=== PATIENT | female | born 1960 | race Caucasian/White ===

== ENCOUNTER 2016-08-03 19:27 | Emergency (ER) | payer OTHER ==
[2016-08-03 20:24] LABS: ALT (SGPT) 11 U/L (0-55); AST (SGOT) 12 U/L (5-34); Alkaline Phosphatase 99 U/L (40-150); Anion Gap 17 mmol/L (10-20); BUN (Urea Nitrogen) 8 mg/dL (9.8-20.1); Bilirubin, Total 0.2 mg/dL (0.2-1.2); Calc. Creatinine Clearance 0 mL/min (70-130); Calcium 9.2 mg/dL (7.8-10.44); Carbon Dioxide 25 mmol/L (22-29); Chloride 103 mmol/L (98-107); Estimated GFR-MDRD 84; Globulin 3.7 g/dL (2.4-3.5); Lipase 37 U/L (8-78); Protein, Total 7.5 g/dL (6.0-8.3); Troponin I Less than 0.010 ng/mL (< 0.028)
[2016-08-03 20:58] LABS: Hematocrit 41.1 % (36.0-47.0); Red Blood Cell (RBC) Count 4.82 mill/uL (4.20-5.40); White Blood Cell (WBC) Count 14.1 thou/uL (4.8-10.8)
[2016-08-03 20:59] LABS: #Basophils 0.2 thou/uL (0.0-0.2); #Eosinphils 0.3 thou/uL (0.0-0.7); #Lymphocytes 5.2 thou/uL (1.20-3.40); #Monocytes 0.4 thou/uL (0.11-0.59); %Basophils 1.1 % (0.0-1.0); %Eosinophils 2.2 % (0.0-10.0); %Monocytes 3.1 % (0.0-10.0); Mean Platelet Volume 5.8 fL (7.4-10.4)
--- NOTE | 2016-08-03 21:06 | PICIS ---
[facility] EMERGENCY RECORD TRIAGE (19:31 WJAN) TRIAGE NOTES: Chest pain, left arm pain for 3 days. Recent surgery on left breast, duct removal. (19:31 WJAN) PATIENT: NAME: Alie Monge, AGE: 56, GENDER: female, : Sat 1960, TIME OF GREET: Sun Aug 03, 2016 19:28, PREFERRED LANGUAGE: Maori, ETHNICITY: Not or , ECODE BILLING MAP: [facility], SSN: [id number], Zip Code: [address], KG WEIGHT: 62.6 (est.), PHONE: , , , PERSON ID: [id number], PAYMENT: [facility] Medicaid. (19:31 WJAN) ADMISSION: URGENCY: 2 Emergent, ADMISSION SOURCE: Home, TRANSPORT: Walk-in, BED: TRIAGE. (19:31 WJAN) ASSESSMENT: Additional Triage notes: Pt reports pain of left and occasionally left chest for 3 days. Pt A&Ox4, NAD, breathing non-labored. (19:41 WJAN) IMMUNIZATIONS: Flu vaccine not up to date, Tetanus immunization up to date, Pneumococcal vaccine not up to date. (19:41 WJAN) SIRS SCORING: Heart Rate 55-109 (0), Temp range 96.8-101.1 (0), respiratory rate 12-24 (0), Mental Status altered: no (0). (19:41 WJAN) TRIAGE SCREENING: Patient denies suicidal ideation, Patient denies presence of domestic violence. (19:41 WJAN) LMP: LMP: Hysterectomy. (19:41 WJAN) PROVIDERS: TRIAGE NURSE: Margaret Dumont RN. (19:31 WJAN) PREVIOUS VISIT ALLERGIES: aspirin (bulk). (19:31 WJAN) aspirin (bulk). (19:41 WJAN) KNOWN ALLERGIES adhesive (Unconfirmed) aspirin (Unconfirmed) aspirin (bulk) (Unconfirmed) saccharin (Unconfirmed) CURRENT MEDICATIONS NovoLOG: VIAL (ML) : Strength - 100 unit/mL : SUBCUTANEOUS Patient Dose: Subcutaneous 2 times a day (before meals). (19:41 WJAN) Lantus: CARTRIDGE (ML) : Strength - 100 unit/mL : SUBCUTANEOUS Patient Dose: Subcutaneous 3 times a day (with meals). (19:43 WJAN) HYDROcodone-acetaminophen: TABLET : Strength - 10 mg-325 mg : ORAL Patient Dose: 1 tab(s) Oral every 8 hours PRN. (19:46 WJAN) Januvia: TABLET : Strength - 25 mg : ORAL Patient Dose: 1 tab(s) Oral once a day. (19:47 WJAN) &a-1R&a+25V*p+0X*b4264F*c202B*c15G*c2P*p-0X&a-25V&a+1R Name: Alie Monge : 1960 F56 MedRec: [id number] AcctNum: [id number] Prepared: Mine Aug 03, 2016 21:12 by Interface Page 1 of 8 pMD [facility] EMERGENCY RECORD VITAL SIGNS VITAL SIGNS: BP: 141/76, Pulse: 86, Resp: 20 (Non-Labored), Temp: 99.6 (Oral), Pain: 8, O2 sat: 96 on Room Air, Time: 08/03/2016 19:31. (19:31 WJAN) BP: 125/68, Pulse: 86, Resp: 20 (Non-Labored), Pain: 4, O2 sat: 96 on Room Air, Time: 08/03/2016 20:07. (20:07 WJAN) BP: 111/73, Pulse: 82, Resp: 20 (Non-Labored), Temp: 98.7 (Oral), Pain: 0, O2 sat: 93 on Room Air, Time: 08/03/2016 21:03. (21:03 WJAN) NURSING ASSESSMENT: CARDIOVASCULAR (19:33 WJAN) CONSTITUTIONAL: Patient arrives ambulatory, Gait steady, History obtained from patient, Patient appears comfortable, Patient cooperative, Patient alert, Oriented to person, place and time, Skin warm, Skin dry, Skin normal in color, Mucous membranes pink, Mucous membranes moist, Patient is well-groomed, Patient complains of Chest Pain, Pt reports pain on underside of left arm and chest pain occasionally at 8/10. Pt A&Ox4, NAD, breathing non-labored. PAIN: underside of left arm and left upper chest, on a scale 0-10 patient rates pain as 8. CARDIOVASCULAR: Cardiovascular assessment findings include heart rate normal, Heart rhythm normal sinus, Heart sounds normal, Left radial pulse +3(easily palpated, considered normal), Right radial pulse +3(easily palpated, considered normal). RESPIRATORY/CHEST: Breath sounds clear, Respiratory assessment findings include respiratory effort easy, Respirations regular, Conversing normally, Neck and chest exam findings include trachea midline, Chest expansion equal, Chest movement symmetrical. SAFETY: Side rails up, Cart/Stretcher in lowest position, Family at bedside, Call light within reach, Hospital ID band on. NURSING PROCEDURE: BEDSIDE RADIOLOGY (20:06 WJUN) PATIENT IDENTIFIER: Patient actively involved in identification process, Patient's identity verified by patient stating name, Patient's identity verified by patient stating date, Patient's identity verified by hospital ID bracelet. BEDSIDE RADIOLOGY: Bedside radiology performed by Ana, Portable chest x-ray performed. SAFETY: Side rails up, Cart/Stretcher in lowest position, Family at bedside, Call light within reach, Hospital ID band on. NURSING PROCEDURE: STEWARD/STEWARDESS BANQUET (19:31 WJUN) PATIENT IDENTIFIER: Patient actively involved in identification process, Patient's identity verified by patient stating name, Patient's identity verified by patient stating date, Patient's identity verified by hospital ID bracelet. STEWARD/STEWARDESS BANQUET: Cardiac monitoring indicated for complaint of chest pain. SAFETY: Side rails up, Cart/Stretcher in lowest position, Family at bedside, Call light within reach, Hospital ID band on. &a-1R&a+25V*p+0X*a0476F*c202B*c15G*c2P*p-0X&a-25V&a+1R Name: Alie Monge : 1960 F56 MedRec: [id number] AcctNum: [id number] Prepared: Mine Aug 03, 2016 21:12 by Interface Page 2 of 8 pMD [facility] EMERGENCY RECORD NURSING PROCEDURE: DISCHARGE NOTE (:05 WJUN) DISCHARGE: Patient discharged to home, ambulating without assistance, family driving, accompanied by other family member, Summary of Care printed/ provided, Patient requested and was provided an electronic copy of Discharge Instructions, Transition record given to patient, Discharge instructions given to patient, Simple or moderate discharge teaching performed, by GLENDY Robles, Notes: Patient instructed to follow up with PCP. Patient instructed to follow medication instructions. Patient instructed to follow discharge teaching. BELONGINGS: Belongings remain with patient, Valuables remain with patient. SAFETY: Side rails up, Cart/Stretcher in lowest position, Call light within reach, Hospital ID band on. NURSING PROCEDURE: EKG CHART (19:31 CHOB) PATIENT IDENTIFIER: Patient actively involved in identification process, Patient's identity verified by patient stating name, Patient's identity verified by patient stating date. EKG: EKG indicated for complaint of chest pain, 12 lead EKG performed on the left chest, done by GLENDY BURCIAGA, first EKG. FOLLOW-UP: After procedure, EKG for interpretation given to Dr. MCCORMICK, Notes: DONE AT 1929. SAFETY: Side rails up, Cart/Stretcher in lowest position, Family at bedside, Call light within reach, Hospital ID band on. NURSING PROCEDURE: IV PATIENT IDENITIFIER: Patient actively involved in identification process, Patient's identity verified by patient stating name, Patient's identity verified by patient stating date. (19:45 CHOB) IV SITE 1: IV therapy indicated for hydration, IV therapy indicated for medication administration, IV established, to the right forearm, using a 20 gauge catheter, in one attempt, IV site prepped with CHLORAPREP, Flushed with normal saline (mls): 10. (19:45 CHOB) FOLLOW-UP SITE 1: After procedure, sterile transparent dressing applied, After procedure, IV line connections checked and properly labeled, Notes: SECURED WITH TEGADERM AND COBAN PER PT TAPE ALLERGY. (19:45 CHOB) After procedure, 2x2 dressing applied, IV discontinued, due to patient being discharged, catheter intact, Notes: IC DC'd, bleeding controlled with 2x2 and coban. (21:01 WJAN) SAFETY: Side rails up, Cart/Stretcher in lowest position, Family at bedside, Call light within reach, Hospital ID band on. (19:45 CHOB) Side rails up, Cart/Stretcher in lowest position, Call light within reach, Hospital ID band on. (21:01 WJAN) NURSING PROCEDURE: NURSE NOTES NURSES NOTES: Notes: MD at bedside. (19:51 WJAN) &a-1R&a+25V*p+0X*g4613Y*c202B*c15G*c2P*p-0X&a-25V&a+1R Name: Alie Monge : 1960 F56 MedRec: [id number] AcctNum: [id number] Prepared: Mine Aug 03, 2016 21:12 by Interface Page 3 of 8 D [facility] EMERGENCY RECORD Notes: MD at bedside with US. (20:15 WJUN) ORDER DETAILS Order Name: Cardiac Profile w/CKMB & Troponin - I, Status: Active, Time: 20:00 08/03/2016, User: VIK, - Ordered for: MD Mccormick Jason, - Entered by: MD Mccormick Jason - Mine Aug 03, 2016 20:00, - Quantity: 1, Order Name: CBC with Differential, Status: Active, Time: 20:00 08/03/2016, User: VIK, - Ordered for: MD Mccormick Jason, - Entered by: MD Mccormick Jason - Sun Aug 03, 2016 20:00, - Quantity: 1, Order Name: Comprehensive Metabolic Panel, Status: Active, Time: 20:00 08/03/2016, User: VIK, - Ordered for: MD Mccormick Jason, - Entered by: MD Mccormick Jason - Sun Aug 03, 2016 20:00, - Quantity: 1, Order Name: EKG 12 Lead in Emergency Room, Status: Active, Time: 20:00 08/03/2016, User: VIK, - Ordered for: MD Mccormick Jason, - Entered by: MD Mccormick Jason - Sun Aug 03, 2016 20:00, - Quantity: 1, Order Name: Lipase, Status: Active, Time: 20:00 08/03/2016, User: VIK, - Ordered for: MD Mccormick Jason, - Entered by: MD Mccormick Jason - Sun Aug 03, 2016 20:00, - Quantity: 1, Order Name: SALINE LOCK, Status: Done, Time: 20:00 08/03/2016, User: KATIE, - Ordered for: MD Mccormick Jason, - Entered by: MD Mccormick Jason - Mine Aug 03, 2016 20:00, - Quantity: 1, Order Name: XR Chest 1 View Portable, Status: Active, Time: 20:00 08/03/2016, User: LINDEN, - Ordered for: MD Mccormick Jason, - Entered by: MD Mccormick Jason - Mine Aug 03, 2016 20:00, - Quantity: 1. HPI CHEST PAIN (20:01 [facility]) CHIEF COMPLAINT: Patient presents for evaluation of chest pain, ongoing. HISTORIAN: History provided by patient, 56F presents to the ED reporting left lateral chest and left upper arm pain, as well as left foot numbness. States that the symptoms began three days ago following a right breast duct excision. Describes the symptoms in her left chest as localized to the left lateral wall near the axilla, with radiation to the left upper medial arm. States it is intermittent, describes it as burning and tingling. Left foot is persistently numb and feels cooler. Denies chest pressure or &a-1R&a+25V*p+0X*v2021S*c202B*c15G*c2P*p-0X&a-25V&a+1R Name: Alie Monge : 1960 F56 MedRec: [id number] AcctNum: [id number] Prepared: Mine Aug 03, 2016 21:12 by Interface Page 4 of 8 pMD [facility] EMERGENCY RECORD shortness of breath. LOCATION: Symptoms are localized, most severe to left lateral chest near axilla. QUALITY: Pain is sharp in nature, described as burning, tingling. TIME COURSE: Sudden onset of symptoms, are intermittent. EXACERBATED BY: Patient's condition exacerbated by movement. RELIEVED BY: Patient's condition relieved by nothing because patient has not tried anything for relief. RISK FACTORS: Coronary artery disease risk factors, include diabetes, include high cholesterol, include smoking, Thoracic aortic dissection risk factors, include hypertension, Pulmonary embolism risk factors, not applicable to this patient. HEART SCORE: Patients history is Slightly Suspicious (0), Patients ECG is normal (0), Patients age is greater than 45 and less than 65 (1), Patient has equal to or greater than 3 risk factors or history of atherosclerotic disease (2). WELLS CRITERIA FOR PE: No clinical signs and symptoms of a DVT (0), Patient does not have, or is likely to not have, a primary diagnosis of PE (0), Patient's heart rate is less than 100 (0), Patient has no history of immobilization within 3 days, nor any surgical history within the past 4 weeks (0), Patient has not had an objectively diagnosed PE or DVT previously (0), Patient does not have hemoptysis (0), Patient has not had treatment for malignancy within the last 6 months, nor palliative (0). ROS (20:05 [facility]) CONSTITUTIONAL: Negative constitutional review of systems, Historian denies chills, denies fever. EYES: Negative eye review of systems, Historian denies eye pain, denies vision changes. ENT: Negative ears, nose, throat review of systems, Historian denies rhinorrhea, denies sore throat, denies voice changes. CARDIOVASCULAR: Historian reports chest pain, in the left chest, radiation to, the arm, Historian denies diaphoresis, denies dyspnea on exertion, denies palpitations. RESPIRATORY: Negative respiratory review of systems, Historian denies cough, denies shortness of breath. GI: Negative gastrointestinal review of systems, Historian denies abdominal pain, denies constipation, denies diarrhea, denies nausea, denies vomiting. GENITOURINARY FEMALE: Negative genitourinary review of systems, Historian denies dysuria, denies frequency. MUSCULOSKELETAL: Negative musculoskeletal review of systems, Historian denies back pain, denies fall, denies injury. &a-1R&a+25V*p+0X*v7605Q*c202B*c15G*c2P*p-0X&a-25V&a+1R Name: Alie Monge : 1960 F56 MedRec: [id number] AcctNum: [id number] Prepared: Mine Aug 03, 2016 21:12 by Interface Page 5 of 8 pMD [facility] EMERGENCY RECORD SKIN: Negative skin review of systems, Historian denies rash, denies skin changes. NEUROLOGIC: Negative neurologic review of systems, Historian denies headache, denies mental status changes, denies paralysis, denies paresthesias, denies sensory changes. HEMO/LYMPHATIC: Normal hematologic/lymphatic system review, Historian denies abnormal blood clotting. ALLERGIC/IMMUNOLOGIC: Normal allergy/immunologic system review, Historian denies frequent infections. PAST MEDICAL HISTORY (19:41 WJAN) MEDICAL HISTORY: Flu vaccine not up to date, Tetanus immunization up to date, Pneumococcal vaccine not up to date, Past medical history includes cardiac history, myocardial infarction, Past medical history includes history of diabetes, Type II, Past medical history includes history of hyperlipidemia, Notes: STROKE, Past medical history includes cardiac history, myocardial infarction, Past medical history includes history of diabetes, Type II, on insulin, Past medical history includes endocrine disease, hypothyroidism. reviewed 08/03/16. FEMALE SURGICAL HISTORY: Surgical history of cholecystectomy, Surgical history of oophorectomy, LUMBAR SX,, Surgical history of appendectomy, Surgical history of cholecystectomy, Surgical history of hysterectomy, Surgical history of oophorectomy. reviewed 08/03/16. PSYCHIATRIC HISTORY: Psychiatric history includes, bipolar disorder. reviewed 08/03/16. SOCIAL HISTORY: Patient denies alcohol use, Patient denies drug use, Patient currently uses tobacco, smokes cigarettes, Patient currently uses tobacco, Patient smokes cigarettes, Patient smokes 1 pack per day. reviewed 08/03/16. [facility] CONSTITUTIONAL: Vital signs reviewed, Patient afebrile, Pulse normal, Blood pressure normal, Respiratory rate normal, Patient appears non toxic, Patient appears pain free, Patient alert and oriented to person, place and time. HEAD: Head exam normal, Head exam included findings of head atraumatic, normocephalic. EYES: Eye exam normal, Eye exam included findings of eyelids normal to inspection, Pupils equally round and reactive to light, Extraocular muscles intact, no nystagmus. ENT: ENT exam normal, Ear exam normal, external ear normal, tympanic membranes normal, no bleeding, Pharynx exam normal, Uvula exam normal, Tonsil exam normal, Mouth exam normal, mucous membranes moist, teeth normal. NECK: Neck exam normal, Neck exam included findings of normal range of motion, Trachea midline, no meningeal signs, no cervical adenopathy, no tenderness. RESPIRATORY CHEST: Respiratory and chest exam normal, Respiratory &a-1R&a+25V*p+0X*b9570Y*c202B*c15G*c2P*p-0X&a-25V&a+1R Name: Alie Monge : 1960 F56 MedRec: [id number] AcctNum: [id number] Prepared: Mine Aug 03, 2016 21:12 by Interface Page 6 of 8 pMD [facility] EMERGENCY RECORD exam included findings of no respiratory distress, Breath sounds clear. CARDIOVASCULAR: Cardiovascular assessment normal, Cardiovascular exam included findings of heart rate regular rate and rhythm, Heart sounds normal. ABDOMEN FEMALE: Abdominal exam included findings of abdomen nontender, Bowel sounds normal, no distension, no mass, no pulsatile masses, no peritoneal signs, no rigidity, no guarding, no rebound, Rovsing's sign absent. BACK: Back exam normal, Back exam included findings of normal inspection, range of motion normal, no tenderness. UPPER EXTREMITY: Upper extremity exam normal, Upper extremity exam included findings of inspection normal, Range of motion normal, Motor strength normal, Sensation intact, Radial pulse normal. LOWER EXTREMITY: Lower extremity exam normal, Lower extremity exam included findings of inspection normal, Range of motion normal, Motor strength normal, Sensation intact, Posterior tibial pulse normal, Pedal pulse normal. NEURO: Neuro exam normal, Neuro exam findings include patient oriented to person, place and time, Speech normal, Gait normal, Cranial nerves intact, no focal motor deficits, no focal sensory deficits. SKIN: Skin exam normal, Skin exam included findings of skin warm, dry, and normal in color, no rash. PSYCHIATRIC: Psychiatric exam normal, Normal affect. EVENTS TRANSFER: Triage to Emergency Triage. (Mine Aug 03, 2016 19:31 WJAN) Emergency Triage to Emergency Room -01. (19:31 WJAN) Removed from Emergency Emergency Room -01. (21:07 WJAN) RADIOLOGYINTERPRETATION (20:34 JJAC) CHEST: Chest films negative. EKG INTERPRETATION (20:06 JJAC) 12 LEAD EKG INTERPRETATION: 12 lead EKG interpreted by Emergency Department Physician at time of study, 12 lead EKG shows normal sinus rhythm, Interpretation: normal EKG, Conduction normal, ST segments normal, T waves normal, [place] normal, Clinical impression: Normal EKG. DOCTOR NOTES (20:34 JJAC) TEXT: Patient presented with left chest and arm pain. The patient has a history concerning for cardiac etiology, and initially we considered ACS, aortic dissection, or pulmonary pathology, but her history and physical exam is more indicative of a neurologic or musculoskeletal issue than it is cardiorespiratory. Workup to this point has been reassuring, with a normal EKG, normal cardiac enzymes, and normal chest xray. patient is hemodynamically stable, and bedside US showed a normal abdominal aorta. I do not believe that she &a-1R&a+25V*p+0X*p3964E*c202B*c15G*c2P*p-0X&a-25V&a+1R Name: Alie Monge : 1960 F56 MedRec: [id number] AcctNum: [id number] Prepared: Mine Aug 03, 2016 21:12 by Interface Page 7 of 8 pMD [facility] EMERGENCY RECORD warrants further workup or investigation at this time, and is appropriate for outpatient follow up with her primary on Thursday as currently scheduled. HEART SCORE: Patients history is Slightly Suspicious (0), Patients ECG is normal (0), Patients age is greater than 45 and less than 65 (1), Patient has equal to or greater than 3 risk factors or history of atherosclerotic disease (2), Patients Troponin is equal to or less than 1 times the normal limit (0), Total 3. PATIENT STATUS: Patient's status is unchanged since arrival to emergency department. PATIENT PLAN: The patient will be discharged. DATA REVIEWED: Lab data reviewed, Xray data reviewed, Reviewed EKG. PROBLEM LIST No recorded problems DIAGNOSIS (20:56 [facility]) FINAL: PRIMARY: MONONEUROPATHY UNSPECIFIED. DISPOSITION PATIENT: Disposition Type: Discharge, Disposition: *Discharge Home. (20:56 [facility]) Condition: Good, Patient left the department. (21:) INSTRUCTION (20:57 [facility]) DISCHARGE: NEUROPATHY, PERIPHERAL. SPECIAL: Follow up with your regular doctor as scheduled on Thursday. Return to the ED immediately if you have any chest or back pain, or your symptoms get worse. PRESCRIPTION No recorded prescriptions IMAGING (21:08 ) *SUPPLY CHARGE SHEET: Image captured from scanner. *DISCHARGE INSTRUCTIONS RECEIPT: Image captured from scanner. *EKG: Image captured from scanner. ADMIN (20:57 [facility]) DIGITAL SIGNATURE: MD Mccormick Jason. [place]: KATIE=GLENDY Lorenzo, Priya CHERY=MD Elizabeth, Bassam JUNIOR=GLENDY Dumont, Margaret &a-1R&a+25V*p+0X*h5467I*c202B*c15G*c2P*p-0X&a-25V&a+1R Name: Alie Monge Beto : 1960 F56 MedRec: [id number] AcctNum: [id number] Prepared: Mine Aug 03, 2016 21:12 by Interface Page 8 of 8 pMD MTDD
--- NOTE | 2016-08-03 21:11 | ERRECORD ---
[facility] CHEST PAIN (20:01 [facility]) CHIEF COMPLAINT: Patient presents for evaluation of chest pain, ongoing. HISTORIAN: History provided by patient, 56F presents to the ED reporting left lateral chest and left upper arm pain, as well as left foot numbness. States that the symptoms began three days ago following a right breast duct excision. Describes the symptoms in her left chest as localized to the left lateral wall near the axilla, with radiation to the left upper medial arm. States it is intermittent, describes it as burning and tingling. Left foot is persistently numb and feels cooler. Denies chest pressure or shortness of breath. LOCATION: Symptoms are localized, most severe to left lateral chest near axilla. QUALITY: Pain is sharp in nature, described as burning, tingling. TIME COURSE: Sudden onset of symptoms, are intermittent. EXACERBATED BY: Patient's condition exacerbated by movement. RELIEVED BY: Patient's condition relieved by nothing because patient has not tried anything for relief. RISK FACTORS: Coronary artery disease risk factors, include diabetes, include high cholesterol, include smoking, Thoracic aortic dissection risk factors, include hypertension, Pulmonary embolism risk factors, not applicable to this patient. HEART SCORE: Patients history is Slightly Suspicious (0), Patients ECG is normal (0), Patients age is greater than 45 and less than 65 (1), Patient has equal to or greater than 3 risk factors or history of atherosclerotic disease (2). WELLS CRITERIA FOR PE: No clinical signs and symptoms of a DVT (0), Patient does not have, or is likely to not have, a primary diagnosis of PE (0), Patient's heart rate is less than 100 (0), Patient has no history of immobilization within 3 days, nor any surgical history within the past 4 weeks (0), Patient has not had an objectively diagnosed PE or DVT previously (0), Patient does not have hemoptysis (0), Patient has not had treatment for malignancy within the last 6 months, nor palliative (0). ROS (20:05 [facility]) CONSTITUTIONAL: Negative constitutional review of systems, Historian denies chills, denies fever. EYES: Negative eye review of systems, Historian denies eye pain, denies vision changes. ENT: Negative ears, nose, throat review of systems, Historian denies rhinorrhea, denies sore throat, denies voice changes. CARDIOVASCULAR: Historian reports chest pain, in the left chest, radiation to, the arm, &a-1R&a+25V*p+0X*[id number]*c202B*c15G*c2P*p-0X&a-25V&a+1R Name: Alie Monge : 1960 F56 MedRec: [id number] AcctNum: [id number] Prepared: Mine Aug 03, 2016 21:12 by Interface Page 1 of 5 pMD [facility] Historian denies diaphoresis, denies dyspnea on exertion, denies palpitations. RESPIRATORY: Negative respiratory review of systems, Historian denies cough, denies shortness of breath. GI: Negative gastrointestinal review of systems, Historian denies abdominal pain, denies constipation, denies diarrhea, denies nausea, denies vomiting. GENITOURINARY FEMALE: Negative genitourinary review of systems, Historian denies dysuria, denies frequency. MUSCULOSKELETAL: Negative musculoskeletal review of systems, Historian denies back pain, denies fall, denies injury. SKIN: Negative skin review of systems, Historian denies rash, denies skin changes. NEUROLOGIC: Negative neurologic review of systems, Historian denies headache, denies mental status changes, denies paralysis, denies paresthesias, denies sensory changes. HEMO/LYMPHATIC: Normal hematologic/lymphatic system review, Historian denies abnormal blood clotting. ALLERGIC/IMMUNOLOGIC: Normal allergy/immunologic system review, Historian denies frequent infections. PAST MEDICAL HISTORY (19:41 [facility]) MEDICAL HISTORY: Flu vaccine not up to date, Tetanus immunization up to date, Pneumococcal vaccine not up to date, Past medical history includes cardiac history, myocardial infarction, Past medical history includes history of diabetes, Type II, Past medical history includes history of hyperlipidemia, Notes: STROKE, Past medical history includes cardiac history, myocardial infarction, Past medical history includes history of diabetes, Type II, on insulin, Past medical history includes endocrine disease, hypothyroidism. reviewed 08/03/16. FEMALE SURGICAL HISTORY: Surgical history of cholecystectomy, Surgical history of oophorectomy, LUMBAR SX,, Surgical history of appendectomy, Surgical history of cholecystectomy, Surgical history of hysterectomy, Surgical history of oophorectomy. reviewed 08/03/16. PSYCHIATRIC HISTORY: Psychiatric history includes, bipolar disorder. reviewed 08/03/16. SOCIAL HISTORY: Patient denies alcohol use, Patient denies drug use, Patient currently uses tobacco, smokes cigarettes, Patient currently uses tobacco, Patient smokes cigarettes, Patient smokes 1 pack per day. reviewed 08/03/16. KNOWN ALLERGIES adhesive (Unconfirmed) aspirin (Unconfirmed) aspirin (bulk) (Unconfirmed) saccharin (Unconfirmed) CURRENT MEDICATIONS &a-1R&a+25V*p+0X*[id number]*c202B*c15G*c2P*p-0X&a-25V&a+1R Name: Alie Monge : 1960 F56 MedRec: [id number] AcctNum: [id number] Prepared: Mine Aug 03, 2016 21:12 by Interface Page 2 of 5 pMD [facility] NovoLOG: VIAL (ML) : Strength - 100 unit/mL : SUBCUTANEOUS Patient Dose: Subcutaneous 2 times a day (before meals). (19:41 [facility]) Lantus: CARTRIDGE (ML) : Strength - 100 unit/mL : SUBCUTANEOUS Patient Dose: Subcutaneous 3 times a day (with meals). (19:43 [facility]) HYDROcodone-acetaminophen: TABLET : Strength - 10 mg-325 mg : ORAL Patient Dose: 1 tab(s) Oral every 8 hours PRN. (19:46 [facility]JAN) Januvia: TABLET : Strength - 25 mg : ORAL Patient Dose: 1 tab(s) Oral once a day. (19:47 [facility]) VITAL SIGNS VITAL SIGNS: BP: 141/76, Pulse: 86, Resp: 20 (Non-Labored), Temp: 99.6 (Oral), Pain: 8, O2 sat: 96 on Room Air, Time: 08/03/2016 19:31. (19:31 WJAN) BP: 125/68, Pulse: 86, Resp: 20 (Non-Labored), Pain: 4, O2 sat: 96 on Room Air, Time: 08/03/2016 20:07. (20:07 WJAN) BP: 111/73, Pulse: 82, Resp: 20 (Non-Labored), Temp: 98.7 (Oral), Pain: 0, O2 sat: 93 on Room Air, Time: 08/03/2016 21:03. (21:03 [facility]JAN) PHYSICAL EXAM (20:05 [facility]) CONSTITUTIONAL: Vital signs reviewed, Patient afebrile, Pulse normal, Blood pressure normal, Respiratory rate normal, Patient appears non toxic, Patient appears pain free, Patient alert and oriented to person, place and time. HEAD: Head exam normal, Head exam included findings of head atraumatic, normocephalic. EYES: Eye exam normal, Eye exam included findings of eyelids normal to inspection, Pupils equally round and reactive to light, Extraocular muscles intact, no nystagmus. ENT: ENT exam normal, Ear exam normal, external ear normal, tympanic membranes normal, no bleeding, Pharynx exam normal, Uvula exam normal, Tonsil exam normal, Mouth exam normal, mucous membranes moist, teeth normal. NECK: Neck exam normal, Neck exam included findings of normal range of motion, Trachea midline, no meningeal signs, no cervical adenopathy, no tenderness. RESPIRATORY CHEST: Respiratory and chest exam normal, Respiratory exam included findings of no respiratory distress, Breath sounds clear. CARDIOVASCULAR: Cardiovascular assessment normal, Cardiovascular exam included findings of heart rate regular rate and rhythm, Heart sounds normal. ABDOMEN FEMALE: Abdominal exam included findings of abdomen nontender, Bowel sounds normal, no distension, no mass, no pulsatile masses, no peritoneal signs, no rigidity, no guarding, no rebound, &a-1R&a+25V*p+0X*[id number]*c202B*c15G*c2P*p-0X&a-25V&a+1R Name: Alie Monge : 1960 F56 MedRec: [id number] AcctNum: [id number] Prepared: Mine Aug 03, 2016 21:12 by Interface Page 3 of 5 pMD [facility] Rovsing's sign absent. BACK: Back exam normal, Back exam included findings of normal inspection, range of motion normal, no tenderness. UPPER EXTREMITY: Upper extremity exam normal, Upper extremity exam included findings of inspection normal, Range of motion normal, Motor strength normal, Sensation intact, Radial pulse normal. LOWER EXTREMITY: Lower extremity exam normal, Lower extremity exam included findings of inspection normal, Range of motion normal, Motor strength normal, Sensation intact, Posterior tibial pulse normal, Pedal pulse normal. NEURO: Neuro exam normal, Neuro exam findings include patient oriented to person, place and time, Speech normal, Gait normal, Cranial nerves intact, no focal motor deficits, no focal sensory deficits. SKIN: Skin exam normal, Skin exam included findings of skin warm, dry, and normal in color, no rash. PSYCHIATRIC: Psychiatric exam normal, Normal affect. EKG INTERPRETATION (20:06 [facility]) 12 LEAD EKG INTERPRETATION: 12 lead EKG interpreted by Emergency Department Physician at time of study, 12 lead EKG shows normal sinus rhythm, Interpretation: normal EKG, Conduction normal, ST segments normal, T waves normal, [place] normal, Clinical impression: Normal EKG. RADIOLOGYINTERPRETATION (20:34 [facility]) CHEST: Chest films negative. DOCTOR NOTES (20:34 [facility]) TEXT: Patient presented with left chest and arm pain. The patient has a history concerning for cardiac etiology, and initially we considered ACS, aortic dissection, or pulmonary pathology, but her history and physical exam is more indicative of a neurologic or musculoskeletal issue than it is cardiorespiratory. Workup to this point has been reassuring, with a normal EKG, normal cardiac enzymes, and normal chest xray. patient is hemodynamically stable, and bedside US showed a normal abdominal aorta. I do not believe that she warrants further workup or investigation at this time, and is appropriate for outpatient follow up with her primary on Thursday as currently scheduled. HEART SCORE: Patients history is Slightly Suspicious (0), Patients ECG is normal (0), Patients age is greater than 45 and less than 65 (1), Patient has equal to or greater than 3 risk factors or history of atherosclerotic disease (2), Patients Troponin is equal to or less than 1 times the normal limit (0), Total 3. PATIENT STATUS: Patient's status is unchanged since arrival to emergency department. PATIENT PLAN: The patient will be discharged. DATA REVIEWED: Lab data reviewed, Xray data reviewed, Reviewed EKG. &a-1R&a+25V*p+0X*[id number]*c202B*c15G*c2P*p-0X&a-25V&a+1R Name: Alie Monge : 1960 F56 MedRec: [id number] AcctNum: [id number] Prepared: Mine Aug 03, 2016 21:12 by Interface Page 4 of 5 pMD [facility] PROBLEM LIST No recorded problems DIAGNOSIS (20:56 LINDEN) FINAL: PRIMARY: MONONEUROPATHY UNSPECIFIED. PRESCRIPTION No recorded prescriptions DISPOSITION PATIENT: Disposition Type: Discharge, Disposition: *Discharge Home. (20:56 VIK) Condition: Good, Patient left the department. (21:07 SANDI) [place]era: VIK=MD Elizabeth, Bassam JUNIOR=GLENDY Dumont, Margaret &a-1R&a+25V*p+0X*g3147P*c202B*c15G*c2P*p-0X&a-25V&a+1R Name: Alie Monge Beto : 1960 F56 MedRec: [id number] AcctNum: [id number] Prepared: Mine Aug 03, 2016 21:12 by Interface Page 5 of 5 pMD [facility]TDD
--- NOTE | 2016-08-04 00:07 | RAD ---
PORTABLE CHEST Date: 08-03-16 An AP portable film at 2000 is compared with a prior study dated 07-27-15. The heart is normal in size. No acute infiltrate or effusion was seen. The vascularity is normal. The left hilum is a little more prominent than on prior films. I believe this is because the patien t is turned slightly, however, it would be prudent to get a follow up PA and lateral chest film to b e sure there is no discrepancy here. Otherwise, the exam was unremarkable. IMPRESSION: 1. No definite acute findings. 2. Mild left hilar prominence that may be due to slight rotation of the patient. Elective follow u p PA and lateral views suggested. Code T POS: HOME
== END 2016-08-03 21:05 | disposition home or self-care (01) ==
LOC: BURERS 19:27
DX: G58.9 Mononeuropathy, unspecified (principal); I25.2 Old myocardial infarction; E11.9 Type 2 diabetes mellitus without complications; E78.5 Hyperlipidemia, unspecified; E03.9 Hypothyroidism, unspecified; F31.9 Bipolar disorder, unspecified; F17.210 Nicotine dependence, cigarettes, uncomplicated; Z79.4 Long term (current) use of insulin
CPT/HCPCS: 71010; 80053; 82553; 83690; 84484; 85025; 93005

== ENCOUNTER 2016-08-05 09:43 | Outpatient (CLI) | payer OTHER ==
[2016-08-05 10:32] LABS: ALT (SGPT) 10 U/L (0-55); AST (SGOT) 10 U/L (5-34); Alkaline Phosphatase 105 U/L (40-150); Anion Gap 15 mmol/L (10-20); BUN (Urea Nitrogen) 9 mg/dL (9.8-20.1); Bilirubin, Total 0.3 mg/dL (0.2-1.2); Calc. Creatinine Clearance 0 mL/min (70-130); Calcium 9.4 mg/dL (7.8-10.44); Carbon Dioxide 27 mmol/L (22-29); Chloride 102 mmol/L (98-107); Estimated GFR-MDRD 90; Globulin 3.4 g/dL (2.4-3.5); Protein, Total 7.3 g/dL (6.0-8.3)
[2016-08-05 12:35] LABS: Hemoglobin A1c 7.4 % (4.0-6.0)
== END 2016-08-05 09:44 | disposition home or self-care (01) ==
LOC: HPCALD 09:43
PROVIDERS: ATTEND Family Medicine
DX: E11.9 Type 2 diabetes mellitus without complications (principal); E78.5 Hyperlipidemia, unspecified
CPT/HCPCS: 36415; 80053; 80061; 82043; 83036

== ENCOUNTER 2016-08-07 09:46 | Outpatient (CLI) | payer OTHER ==
--- NOTE | 2016-08-07 20:33 | RAD ---
LEFT SHOULDER THREE VIEWS 08/07/16 No acute fracture was seen. There is no dislocation or AC joint widening. There is an irregularity a long the inferior lip of the glenoid where the lateral border of the scapula meets it. This suggests the possibility of a prior injury here. IMPRESSION: No acute findings but evidence of old trauma at and just below the inferior lip of the glenoid. POS: HOME
== END 2016-08-07 09:47 | disposition home or self-care (01) ==
LOC: BURRAD 09:46
PROVIDERS: ATTEND Family Medicine
DX: M25.512 Pain in left shoulder (principal)

== ENCOUNTER 2016-08-27 19:31 | Emergency (ER) | payer OTHER ==
[2016-08-27 20:38] LABS: Bilirubin Negative (Negative); Blood, Urine Negative (Negative); Glucose, Urine (Dipstick) Negative (Negative); Ketone, Urine Negative (Negative); Nitrite Negative (Negative); Protein, Urine (Dipstick) 100 mg/dL (Neg-Trace); Urobilinogen 0.2 mg/dL (0.2-1.0)
[2016-08-27 20:59] LABS: Bacteria/HPF 1+ HPF (None Seen); RBC/HPF 0-3 HPF (0-3); Squamous Epithelial 0-3 HPF (0-3)
[2016-08-27] MEDS ORDERED: Sulfameth/Trimethoprim DS 800-160mg TAB ONE (21:07)
[2016-08-27] MEDS ORDERED: Benzonatate 100 MG CAP ONE (21:27)
--- NOTE | 2016-08-27 22:15 | RAD ---
CHEST TWO VIEWS: 08/27/16 The basilar lung markings are coarser today than they were on the 08/03/06 study. Early infiltrates or pneumonia are suspected. The upper lungs are clear. Previously, the left hilum was a little promine nt and a followup film was suggested. It is no longer prominent today. The heart size is normal. IMPRESSION: Bibasilar streaking suspicious for an early pneumonia. Code T POS: HOME
== END 2016-08-27 21:29 | disposition home or self-care (01) ==
LOC: BURERS 19:31
DX: J20.9 Acute bronchitis, unspecified (principal); N39.0 Urinary tract infection, site not specified; I25.2 Old myocardial infarction; E11.9 Type 2 diabetes mellitus without complications; E78.5 Hyperlipidemia, unspecified; E03.9 Hypothyroidism, unspecified; F31.9 Bipolar disorder, unspecified; F17.210 Nicotine dependence, cigarettes, uncomplicated
CPT/HCPCS: 71020; 81003; 81015; 87086; 93005

== ENCOUNTER 2017-01-16 09:47 | Outpatient (CLI) | payer OTHER ==
[2017-01-16 10:29] LABS: ALT (SGPT) 12 U/L (8-55); AST (SGOT) 8 U/L (5-34); Albumin 4.1 g/dL (3.5-5.0); Alkaline Phosphatase 120 U/L (40-150); Anion Gap 17 mmol/L (10-20); BUN (Urea Nitrogen) 11 mg/dL (9.8-20.1); Bilirubin, Total 0.2 mg/dL (0.2-1.2); Calc. Creatinine Clearance 0 mL/min (70-130); Calcium 9.9 mg/dL (7.8-10.44); Carbon Dioxide 24 mmol/L (22-29); Cardiac Risk 6.2 (Less than 4.5); Chloride 103 mmol/L (98-107); Cholesterol 284 mg/dl (< 200 Desired); Estimated GFR-MDRD 74; Globulin 3.8 g/dL (2.4-3.5); Glucose 291 mg/dL (70-105); HDL Cholesterol 46 mg/dL (>60 Neg Risk); LDL Cholesterol, Calculated 181 mg/dL; Potassium 4.3 mmol/L (3.5-5.1); Protein, Total 7.9 g/dL (6.0-8.3); Sodium 140 mmol/L (136-145); Triglycerides 283 mg/dL (Less than 150)
[2017-01-16 10:30] LABS: Hemoglobin 15.2 g/dL (12.0-16.0); Mean Corpuscular HGB CONC 33.1 g/dL (32.0-36.0); Mean Corpuscular Hemoglobin 28.3 pg (27.0-31.0); Mean Corpuscular Volume 85.7 fl (81.0-99.0); Mean Platelet Volume 6.8 fL (7.4-10.4); Platelet Count 309 thou/uL (130-400); RBC Distribution Width 12.1 % (11.5-14.5); Red Blood Cell (RBC) Count 5.37 mill/uL (4.20-5.40); White Blood Cell (WBC) Count 13.4 thou/uL (4.8-10.8)
[2017-01-16 11:35] LABS: Hemoglobin A1c 9.6 % (4.0-6.0)
== END 2017-01-16 09:48 | disposition home or self-care (01) ==
LOC: BURLAB 09:47
DX: E78.5 Hyperlipidemia, unspecified (principal); R73.01 Impaired fasting glucose; I10 Essential (primary) hypertension
CPT/HCPCS: 36415; 80053; 80061; 83036; 83880; 85027

== ENCOUNTER 2017-02-02 10:30 | Outpatient (CLI) | payer OTHER ==
[2017-02-02 11:01] LABS: #Basophils 0.1 thou/uL (0.0-0.2); #Eosinphils 0.2 thou/uL (0.0-0.7); #Lymphocytes 4.9 thou/uL (1.20-3.40); #Monocytes 0.5 thou/uL (0.11-0.59); #Neutrophils 7.2 thou/uL (1.40-6.50); %Basophils 0.9 % (0.0-1.0); %Eosinophils 1.3 % (0.0-10.0); %Lymphocytes 38.1 % (21.0-51.0); %Neutrophils 55.7 % (42.0-75.0); Hemoglobin 14.1 g/dL (12.0-16.0); Mean Corpuscular Hemoglobin 29.7 pg (27.0-31.0); Mean Platelet Volume 6.6 fL (7.4-10.4); Platelet Count 222 thou/uL (130-400); RBC Distribution Width 12.4 % (11.5-14.5); Red Blood Cell (RBC) Count 4.73 mill/uL (4.20-5.40); White Blood Cell (WBC) Count 12.9 thou/uL (4.8-10.8)
[2017-02-04 08:19] LABS: Antinuclear AB Negative (Negative)
== END 2017-02-02 10:31 | disposition home or self-care (01) ==
LOC: HPCALD 10:30
PROVIDERS: ATTEND Family Medicine
DX: R63.4 Abnormal weight loss (principal)
CPT/HCPCS: 36415; 84443; 85025; 86038

== ENCOUNTER 2017-02-27 13:56 | Outpatient (CLI) | payer OTHER | END 2017-02-27 13:57 | disposition home or self-care (01) | LOC: HPCALD 13:56 | PROVIDERS: ATTEND Family Medicine | DX: K52.9 Noninfective gastroenteritis and colitis, unspecified (principal) | CPT/HCPCS: 36415; 82784; 83516; 86255; 87015; 87045; 87046; 87324; 87449; 87899 ==

== ENCOUNTER 2017-08-07 14:37 | Outpatient (CLI) | payer OTHER ==
--- NOTE | 2017-08-07 20:53 | RAD ---
CHEST TWO VIEWS 08/07/17 The exam was labeled as a preoperative study. The most recent comparison film I have is dated 08/27/16. The patient stated that she had pneumonia in May 2017, but I do not have any films from that e pisode. There is an extensive infiltrate in the right upper lobe that was not present in August 2016. Further, it appears that there may be a cavity with an air fluid level within this area, though this is less certain. Some pleural thickening is seen. The lungs are otherwise clear. The heart is normal in size. There are no effusions. There is no hilar adenopathy. The trachea is midline. IMPRESSION: Extensive right upper lobe infiltrate, a new finding since last August. There may even be a fluid fill ed cavity within it. The appearance immediately brings to mind the possibility of tuberculosis or les s likely a staph infection. These findings should be correlated with the 2016 history. If more recent chest films were available for comparison, they could be quite useful. Further workup is needed. Code T POS: HOME
== END 2017-08-07 14:38 | disposition home or self-care (01) ==
LOC: BURRAD 14:37
PROVIDERS: ATTEND Family Medicine
DX: Z01.818 Encounter for other preprocedural examination (principal); R91.8 Other nonspecific abnormal finding of lung field
CPT/HCPCS: 71046

== ENCOUNTER 2019-11-30 16:28 | Outpatient (CLI) | payer OTHER ==
--- NOTE | 2019-11-30 22:26 | RAD ---
RIGHT GREAT TOE 3 VIEWS: Date: 11/30/2019 No acute fracture seen. There may be the beginnings of some arthritic changes in the first metatarsop halangeal joint. Minimal hallux valgus is present. No bony destructive lesions seen. IMPRESSION: No acute findings. Minor arthritic changes. POS: HOME
--- NOTE | 2019-11-30 22:27 | RAD ---
CERVICAL SPINE: Date: 11/30/2019 AP, open-mouth, and lateral views were obtained. No fracture, disc space narrowing, or soft tissue sw elling seen. There are the beginnings of some small osteophytes anteriorly in the cervical spine, stephen nly the lower cervical region. The C1 to dens distance is normal. There is mild loss of the normal lo rdosis which could be due to muscle spasm. IMPRESSION: Minor arthritic changes. POS: HOME
== END 2019-11-30 16:29 | disposition home or self-care (01) ==
LOC: BURRAD 16:28
PROVIDERS: ATTEND Family Medicine
DX: M79.674 Pain in right toe(s) (principal); M54.2 Cervicalgia; M46.92 Unspecified inflammatory spondylopathy, cervical region; M19.071 Primary osteoarthritis, right ankle and foot
CPT/HCPCS: 72040

== ENCOUNTER 2020-07-22 18:26 | Emergency (ER) | payer OTHER ==
--- NOTE | 2020-07-23 07:57 | RAD ---
LEFT FOREARM 2 VIEWS: DATE: 07/22/2020. FINDINGS: No fracture or dislocation was seen. The distal radius and ulna, which I am told is the site of inju ry, appear intact. There is no joint effusion at the elbow. The carpal bones showed no acute findin gs within the limitations of this study not being designed to specifically see them well. IMPRESSION: No significant findings. POS: HOME
== END 2020-07-22 19:10 | disposition home or self-care (01) ==
LOC: BURERS 18:26
DX: S50.12XA Contusion of left forearm, initial encounter (principal); S80.212A Abrasion, left knee, initial encounter; S80.211A Abrasion, right knee, initial encounter; S50.811A Abrasion of right forearm, initial encounter; W01.198A Fall on same level from slipping, tripping and stumbling with subsequent striking against other object, initial encounter; Z79.899 Other long term (current) drug therapy; Z79.4 Long term (current) use of insulin; I25.2 Old myocardial infarction; E11.9 Type 2 diabetes mellitus without complications; E78.5 Hyperlipidemia, unspecified; Z86.73 Personal history of transient ischemic attack (TIA), and cerebral infarction without residual deficits; F17.210 Nicotine dependence, cigarettes, uncomplicated
CPT/HCPCS: 99406

== ENCOUNTER 2020-08-21 12:32 | Emergency (ER) | payer OTHER ==
--- NOTE | 2020-08-21 19:36 | RAD ---
RIGHT FOREARM TWO VIEWS: 08/21/20 No fracture was seen. The radius and ulna appear intact. No joint effusion was seen at the elbow. IMPRESSION: No acute bony finding. POS: HOME
--- NOTE | 2020-08-21 19:39 | RAD ---
RIGHT WRIST THREE VIEWS: 08/21/20 Some mild arthritic changes are seen in the first carpometacarpal joint. The carpal bones themselves appear intact. No fracture or acute bony change was seen. IMPRESSION: No acute bony findings. POS: HOME
== END 2020-08-21 13:50 | disposition home or self-care (01) ==
LOC: BURERS 12:32
DX: S50.11XA Contusion of right forearm, initial encounter (principal); I25.2 Old myocardial infarction; E11.9 Type 2 diabetes mellitus without complications; E78.5 Hyperlipidemia, unspecified; Z79.4 Long term (current) use of insulin; F17.210 Nicotine dependence, cigarettes, uncomplicated; W01.0XXA Fall on same level from slipping, tripping and stumbling without subsequent striking against object, initial encounter

== ENCOUNTER 2022-04-24 19:52 | Emergency (ER) | payer OTHER ==
[2022-04-24] MEDS ORDERED: Ibuprofen 200 MG TAB ONE (20:55)
== END 2022-04-24 22:10 | disposition home or self-care (01) ==
LOC: BURERS 19:52
DX: M25.362 Other instability, left knee (principal); M23.42 Loose body in knee, left knee; S46.911A Strain of unspecified muscle, fascia and tendon at shoulder and upper arm level, right arm, initial encounter; S43.401A Unspecified sprain of right shoulder joint, initial encounter; E11.9 Type 2 diabetes mellitus without complications; E78.5 Hyperlipidemia, unspecified; F17.210 Nicotine dependence, cigarettes, uncomplicated; X50.1XXA Overexertion from prolonged static or awkward postures, initial encounter